=== PATIENT | male | born 1995 | race Caucasian/White ===

== ENCOUNTER 2019-08-09 21:42 | Emergency (ER) | payer MEDICAID, OTHER ==
[~2019-08-09] VITALS: Ht 172.7 cm; Wt 86.2 kg
[~2019-08-09 21:42] MED LIST: Omnipaque-300 100ml vial INJ PRN
[2019-08-09] MEDS ORDERED: Morphine Sulfate 4mg/ml Inj (IV USE ONLY) IVP ONE (21:45)
--- NOTE | 2019-08-09 21:49 | Emergency Room Report ---
History of Present Illness General Chief Complaint: To Be Triaged Source: Patient (Chris Chinchilla MD) Present Illness HPI Disclaimer: Please note that this report is being documented using DRAGON technology. This can lead to erroneous entry secondary to incorrect interpretation by the dictating instrument. HPI: 24-year-old male presents for evaluation abdominal pain. Symptoms began 3 hours ago. He noted left-sided flank and left lower quadrant pain that is 10/ 10 intensity, stabbing and nonradiating. Reports he has been having grossly bloody urine for this amount of time. Denies pain in the testicles, dysuria or increased frequency or urgency. There is a family history kidney stones but he has never had one himself. He states he has some unknown GI issue with hypersensitivity though is never had a formal work-up. Denies vomiting but reports significant nausea. Denies recent constipation or diarrhea. Denies fever, chills, chest pain, shortness of breath, cough, URI symptoms. No known sick contacts. Denies alcohol abuse. PMH: Denies PSH: Denies Allergies: Denies Social Hx: THC, vape use (Chris Chinchilla MD) Allergies: Coded Allergies: No Known Allergies (Unverified , 08/09/19) COVID-19 Screening Contact w/high risk pt: No Recent Travel to affected area: No Experienced COVID-19 symptoms?: No (Chris Chinchilla MD) Nursing Documentation-PMH Past Medical History: No History, Except For Hx Asthma: Yes (Chris Chinchilla MD) Review of Systems All Other Systems: negative except mentioned in HPI (Chris Chinchilla MD) Physical Exam Vital Signs Date Time Temp Pulse Resp B/P (MAP) Pulse Ox O2 Delivery O2 Flow Rate FiO2 08/09/19 21:22 98.4 62 20 145/98 (114) 98 Room Air General: Awake and alert, visibly uncomfortable HEENT: NC/AT. EOMI. Cardiovascular: RRR. S1 and S2 normal. No murmur appreciated Resp: Normal work of breathing. No cough, wheezing or crackles appreciated Abdomen: Abdomen is soft, nondistended. Tender palpation left lower quadrant and over the left flank with CVA tenderness. Skin: Intact. No abrasions, laceration or rash over the exposed skin MSK: Normal tone and bulk. Moving all extremities. No obvious deformity. Neuro: Awake and alert. Mentating appropriately. Back/Spine: Left-sided CVA tenderness to palpation and percussion (Chris Chinchilla MD) Medical Decision Making Diagnostic Impression: Primary Impression: Ureteral calculus, left ER Course Is a 23-year-old male presenting for evaluation of sudden onset left side abdominal pain 3 hours ago. Differential includes was not limited to nephrolithiasis, pyelonephritis, diverticulitis, bowel obstruction, UTI, urethritis, hernia, pancreatitis, cholecystitis, gastritis. Patient's family history and onset are more consistent with an acute kidney stone. Will send for Noncon CT scan of the abdomen, give IV fluids, pain medication, broad labs ordered. Laboratory Tests Test 08/09/19 21:30 08/09/19 22:00 White Blood Count 17.1 K/UL (4.8-10.8) H Red Blood Count 5.89 M/UL (4.70-6.10) Hemoglobin 17.1 G/DL (14.2-18.0) Hematocrit 50.6 % (42.0-52.0) Mean Corpuscular Volume 86 FL (80-99) Mean Corpuscular Hemoglobin 29.0 PG (27.0-31.0) Mean Corpuscular Hemoglobin Concent 33.7 G/DL (32.0-36.0) Red Cell Distribution Width 11.9 % (11.6-14.8) Platelet Count 238 K/UL (150-450) Mean Platelet Volume 8.4 FL (6.5-10.1) Neutrophils (%) (Auto) 86.5 % (45.0-75.0) H Lymphocytes (%) (Auto) 9.2 % (20.0-45.0) L Monocytes (%) (Auto) 3.5 % (1.0-10.0) Eosinophils (%) (Auto) 0.2 % (0.0-3.0) Basophils (%) (Auto) 0.6 % (0.0-2.0) Sodium Level 140 MMOL/L (136-145) Potassium Level 3.8 MMOL/L (3.5-5.1) Chloride Level 102 MMOL/L (98-107) Carbon Dioxide Level 28 MMOL/L (21-32) Anion Gap 10 mmol/L (5-15) Blood Urea Nitrogen 14 mg/dL (7-18) Creatinine 1.2 MG/DL (0.55-1.30) Estimated Glomerular Filtration Rate > 60 mL/min (>60) Glucose Level 126 MG/DL (74-106) H Calcium Level 9.5 MG/DL (8.5-10.1) Total Bilirubin 0.8 MG/DL (0.2-1.0) Aspartate Amino Transferase (AST) 26 U/L (15-37) Alanine Aminotransferase (ALT) 73 U/L (12-78) Alkaline Phosphatase 76 U/L (46-116) Total Protein 7.6 G/DL (6.4-8.2) Albumin 4.7 G/DL (3.4-5.0) Globulin 2.9 g/dL Albumin/Globulin Ratio 1.6 (1.0-2.7) Lipase 88 U/L (73-393) Urine Color Brown Urine Appearance Cloudy Urine pH 5 (4.5-8.0) Urine Specific [place] 1.030 (1.005-1.035) Urine Protein 3+ (NEGATIVE) H Urine Glucose (UA) Negative (NEGATIVE) Urine Ketones 4+ (NEGATIVE) H Urine Blood 5+ (NEGATIVE) H Urine Nitrite Negative (NEGATIVE) Urine Bilirubin 1+ (NEGATIVE) H Urine Ictotest Negative (NEGATIVE) Urine Urobilinogen 1 MG/DL (0.0-1.0) H Urine Leukocyte Esterase 1+ (NEGATIVE) H Urine RBC Tntc /HPF (0 - 0) H Urine WBC 0-2 /HPF (0 - 0) Urine Squamous Epithelial Cells Occasional /LPF Urine Bacteria Many /HPF (NONE) H Urine Opiates Screen Negative (NEGATIVE) Urine Barbiturates Screen Negative (NEGATIVE) Phencyclidine (PCP) Screen Negative (NEGATIVE) Urine Amphetamines Screen Negative (NEGATIVE) Urine Benzodiazepines Screen Negative (NEGATIVE) Urine Cocaine Screen Negative (NEGATIVE) Urine Marijuana (THC) Screen Positive (NEGATIVE) H (Chris Chinchilla MD) ER Course This patient was signed out to me. He presents with left flank pain with hematuria for last 3 days. Urinalysis showed blood and bacteria. No white count however. He does have an elevated WBC. This may be secondary to pain versus infection. CT scan showed a ureteral calculus. He has no fever here. Because of the perinephric stranding, will put him on antibiotics. Patient pain is well controlled now. Kidney function normal. Will discharge home. (Mahad Green MD) CT/MRI/US Diagnostic Results CT/MRI/US Diagnostic Results : Imaging Test Ordered: CT abdomen and pelvis Impression Read by radiologist. 2 mm distal left ureteral calculus near the UVJ. Mild left hydro-utero nephrosis and perinephric stranding. (Mahad Green MD) Last Vital Signs Date Time Temp Pulse Resp B/P (MAP) Pulse Ox O2 Delivery O2 Flow Rate FiO2 08/09/19 21:22 98.4 62 20 145/98 (114) 98 Room Air (Chris Chinchilla MD) Status: improved (Mahad Green MD) Disposition: HOME, SELF-CARE Condition: Stable Scripts Ibuprofen* (MOTRIN*) 600 Mg Tablet 600 MG ORAL Q6H PRN for For Pain, #30 TAB 0 Refills Prov: Mahad Green MD 08/09/19 Cephalexin* (KEFLEX*) 500 Mg Capsule 500 MG ORAL TID, #21 CAP Prov: Mahad Green MD 08/09/19 Hydrocodone/Acetaminophen 5-325* (HYDROCODONE/ACETAMINOPHEN 5-325*) 1 Each Tablet 1 TAB ORAL Q6H PRN for For Pain, #20 TAB 0 Refills Prov: Mahad Green MD 08/09/19 Additional Instructions: Increase fluids. Avoid carbonated drinks. Follow-up with your doctor in 7 days. If symptoms do not improve, you may need referral to see a urologist. Return if symptoms worsen. Chris Chinchilla MD Aug 09, 2019 21:49 Mahad Green MD Aug 09, 2019 23:28
[2019-08-09] MEDS ORDERED: Morphine Sulfate 4mg/ml Inj (IV USE ONLY) ONE (21:51)
[2019-08-09] MEDS ORDERED: HYDROmorphone 1mg/ml Carpuject ONE (21:59)
[2019-08-09] MEDS ORDERED: Ketorolac 30mg Inj IV ONE (22:00)
--- NOTE | 2019-08-09 22:00 | NUR ---
ED Nurse Note: Recieved pt BIBA from home, here with c/o severe, sudden abdominal pain on left side with gross hematuria, pt had emesis x 3 ROOFER, pt is on gurney crying and cant be still, denies CP, SOB, or any other complaints, pt has hx of asthma, immediately gowned and placed on cardiac monitoring, IV line placed and labs drawn, MD at bedside, will resume care as ordered and closely monitor.
[2019-08-09 22:09] LABS: HEMATOCRIT 50.6 % (42.0-52.0); HEMOGLOBIN 17.1 G/DL (14.2-18.0); MEAN CORPUSCULAR VOLUME 86 FL (80-99); PLATELET COUNT 238 K/UL (150-450); RED BLOOD COUNT 5.89 M/UL (4.70-6.10); RED CELL DISTRIBUTION WIDTH 11.9 % (11.6-14.8); WHITE BLOOD COUNT 17.1 K/UL (4.8-10.8)
[2019-08-09 22:10] LABS: BASOPHILS % (AUTO) 0.6 % (0.0-2.0); EOSINOPHILS % (AUTO) 0.2 % (0.0-3.0); LYMPHOCYTES % (AUTO) 9.2 % (20.0-45.0); MONOCYTES % (AUTO) 3.5 % (1.0-10.0); NEUTROPHILS % (AUTO) 86.5 % (45.0-75.0)
[2019-08-09 22:18] LABS: ANION GAP 10 mmol/L (5-15); BLOOD UREA NITROGEN 14 mg/dL (7-18); CALCIUM 9.5 MG/DL (8.5-10.1); CARBON DIOXIDE 28 MMOL/L (21-32); CHLORIDE 102 MMOL/L (98-107); CREATININE 1.2 MG/DL (0.55-1.30); POTASSIUM 3.8 MMOL/L (3.5-5.1); SODIUM 140 MMOL/L (136-145)
[2019-08-09 22:22] LABS: ALANINE AMINOTRANSFERASE 73 U/L (12-78); ALBUMIN 4.7 G/DL (3.4-5.0); ALBUMIN/GLOBULIN RATIO 1.6 (1.0-2.7); ALKALINE PHOSPHATASE 76 U/L (46-116); ASPARTATE AMINO TRANSFERASE 26 U/L (15-37); BILIRUBIN,TOTAL 0.8 MG/DL (0.2-1.0)
--- NOTE | 2019-08-09 22:30 | Diagnostic Imaging Report ---
EXAM: CT Abdomen and Pelvis Without Intravenous Contrast CLINICAL HISTORY: ABD PAIN TECHNIQUE: Axial computed tomography images of the abdomen and pelvis without intravenous contrast. CTDI is 7.1 mGy and DLP is 4-4.2 mGy-cm. One or more of the following dose reduction techniques were used: automated exposure control, adjustment of the mA and/or kV according to patient size, use of iterative reconstruction technique. COMPARISON: No relevant prior studies available. FINDINGS: Lung bases: No significant abnormality. ABDOMEN: Liver: No significant abnormality. Gallbladder and bile ducts: No significant abnormality. No calcified stones. Pancreas: No significant abnormality. Spleen: No significant abnormality. Adrenals: No significant abnormality. Kidneys and ureters: 2 mm distal left ureteral calculus near the ureterovesicular junction. Mild left hydroureteronephrosis and perinephric stranding. Stomach and bowel: No significant abnormality. Bowel is nondilated. PELVIS: Appendix: No findings to suggest acute appendicitis. Bladder: No significant abnormality. No calcified stones. Reproductive: Unremarkable as visualized. ABDOMEN and PELVIS: Intraperitoneal space: No significant abnormality. No free air. Bones/joints: No acute fracture or malalignment. Soft tissues: No significant abnormality. Vasculature: No significant abnormality. No abdominal aortic aneurysm. Lymph nodes: No significant abnormality. IMPRESSION: 2 mm distal left ureteral calculus near the ureterovesicular junction. Mild left hydroureteronephrosis and perinephric stranding.
[2019-08-09] MEDS ORDERED: HYDROmorphone 1mg/ml Carpuject IVP ONE ×2 (22:45)
[2019-08-09 23:00] VITALS: BP 140/84
[2019-08-09 23:03] LABS: APPEARANCE,URINE CLOUDY; BILIRUBIN, URINE 1+ (NEGATIVE); COLOR,URINE BROWN; GLUCOSE, URINE (UA) NEGATIVE (NEGATIVE); KETONES,URINE 4+ (NEGATIVE); LEUKOCYTE ESTERASE ,URINE 1+ (NEGATIVE); NITRITE,URINE NEGATIVE (NEGATIVE); PH,URINE 5 (4.5-8.0); PROTEIN,URINE 3+ (NEGATIVE); UROBILINOGEN,URINE 1 MG/DL (0.0-1.0)
[2019-08-09] MEDS ORDERED: IBUPROFEN600 M1 ORAL (23:27)
[2019-08-09] MEDS ORDERED: HYDROCODON-ACE1 EA15 ORAL (23:27)
[2019-08-09] MEDS ORDERED: CEPHALEXIN500 MG ORAL (23:27)
[2019-08-09] MEDS ORDERED: cefTRIAXone 1 GM in NS 55 ML IVPB ONE (23:30)
[2019-08-10 00:15] VITALS: BP 129/79
--- NOTE | 2019-08-10 00:15 | NUR ---
ER DISCHARGE NOTE: Patient is cleared to be discharged per ERMD, pt is aox4, on room air, with stable vital signs. pt was given dc and prescription instructions, pt was able to verbalize understanding, pt id band and iv site removed without complications. pt is able to ambulate with steady gait. pt took all belongings.pt also given referrals for near pharmacies and sat with pt and discussed proper medication administration. pt ahs roommate to pick him up,.
[2019-08-10 00:30] VITALS: BP 129/79
== END 2019-08-10 00:30 | disposition home or self-care (01) ==
LOC: EDBD 21:42 → EMR 22:13
DX: N20.1 Calculus of ureter (principal)
CPT/HCPCS: 36415; 74176; 80053; 80307; 81003; 83690; 85025; 87086; 96361; 96365; 96375; 96376; 99284; J0696; J1170; J1885; J2270; J2405; J7030; J7040